=== PATIENT | male | born 1950 | race Caucasian/White ===

== ENCOUNTER 2017-06-14 21:39 | Inpatient (IN) | payer OTHER, MEDICARE ==
[2017-06-14] MEDS ORDERED: RX INFO: IV CONTRAST WAS GIVEN 1 EACH MISC MISCELLANE PRN (22:01)
[2017-06-14] MEDS ORDERED: SODIUM CHLORIDE 0.9% 1,000 ML IV STA (22:01)
[2017-06-14] MEDS ORDERED: MORPHINE SULFATE 4MG/4ML SYRG IVP STA ×2 (22:01→23:02)
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
[2017-06-14 22:28] LABS: Amorphous Sediment,Urine Few /hpf; Appearance,Urine Cloudy (Clear); Bilirubin,Urine Negative (Negative); Blood,Urine Negative (Negative); Color,Urine Yellow; Glucose,Urine (UA) Negative (Negative); Ketones,Urine 2+ (Negative); Leukocyte Esterase,Urine Negative (Negative); Mucus,Urine Many /hpf; Nitrite,Urine Negative (Negative); PH, Urine 6.5 (5.0-8.0); Protein,Urine 1+ (Negative); RBC,Urine 1 /hpf (0-5); Urobilinogen,Urine <2.0 mg/dL (<2.0); WBC,Urine 4 /hpf (0-5)
[2017-06-14 22:33] LABS: Basophils % (A) 0 %; Eosinophils % (A) 2 %; HCT 41.4 % (39.0-53.0); HGB 13.9 gm/dL (13.0-17.5); Lymphocytes # (A) 0.9 k/uL (1.0-4.8); Lymphocytes % (A) 6 %; MCH 28.9 pg (25.0-35.0); MCHC 33.5 g/dL (31.0-37.0); MCV 86.1 fL (80.0-100.0); Mean Platelet Volume 7.4; Monocytes # (A) 0.6 k/uL (0-1.0); Monocytes % (A) 4 %; Neutrophils # (A) 12.6 k/uL (1.3-7.7); Neutrophils % (A) 87 %; Platelet Count 262 k/uL (150-450); RBC 4.81 m/uL (4.30-5.90); RDW 12.9 % (11.5-15.5); WBC 14.4 k/uL (3.8-10.6)
[2017-06-14 22:34] LABS: Eosinophils # (A) 0.3 k/uL (0-0.7)
[2017-06-14 22:48] LABS: Amylase 86 U/L (30-110); Anion Gap 12 mmol/L; Calcium 9.3 mg/dL (8.4-10.2); Carbon Dioxide 20 mmol/L (22-30); Chloride 105 mmol/L (98-107); Glucose 197 mg/dL (74-99); Lipase 95 U/L (23-300); Sodium 137 mmol/L (137-145); Total Bilirubin 1.1 mg/dL (0.2-1.3)
[2017-06-14 22:53] LABS: ALT 25 U/L (21-72); AST 32 U/L (17-59); Albumin 3.7 g/dL (3.5-5.0); Alkaline Phosphatase 57 U/L (38-126); Blood Urea Nitrogen 19 mg/dL (9-20); Total Protein 6.5 g/dL (6.3-8.2)
[2017-06-14] MEDS ORDERED: ONDANSETRON 4 MG/2 ML VIAL IVP STA (23:02)
[2017-06-14] MEDS ORDERED: MORPHINE SULFATE 4MG/4ML SYRG ONE (23:04)
--- NOTE | 2017-06-14 23:37 | CT ---
EXAMINATION TYPE: CT abdomen pelvis w con DATE OF EXAM: 06/14/2017 COMPARISON: NONE HISTORY: RIGHT SIDED ABDOMINAL PAIN CT DLP: 2111.70 mGycm Automated exposure control for dose reduction was used. TECHNIQUE: Helical acquisition of images was performed from the lung bases through the pelvis. CONTRAST: Performed without Oral Contrast and with IV Contrast, patient injected with 100 mL of Isovue 300. FINDINGS: There is some mild linear density at the posterior lung bases. Heart size is normal. There is no dimitrios cardial effusion. There is no pleural effusion. Liver spleen pancreas gallbladder appear normal. Bile ducts are not dilated. There is a small hiatal hernia. There is no adrenal mass. Kidneys show satisfactory contrast opacification. There is no hydronephrosi s. There is a 3.8 cm cortical cyst on the lower pole left kidney. There is no retroperitoneal adenopa thy. There is fat stranding in the right mid abdomen with thickened appendix and probable appendicolith. A ppendix measures 16 mm. There is no evidence of an abscess. I see no intestinal wall thickening. There are no dilated loops. There are multiple diverticula in th e sigmoid colon. There is no sign of diverticulitis. Small bowel appears fairly normal. There are spo ndylotic changes in the lumbar spine with disc space narrowing at multiple levels. There is a right-s ided spondylolysis of L5. There is a mild first-degree L5-S1 spondylolisthesis. IMPRESSION: THICKENED APPENDIX WITH APPENDICOLITH AND FAT STRANDING CONSISTENT WITH ACUTE APPENDICITIS. NO ABSCES S. SIGMOID DIVERTICULOSIS. FIRST-DEGREE L5-S1 SPONDYLOLISTHESIS WITH L5 UNILATERAL SPONDYLOLYSIS. SMALL HIATAL HERNIA. THERE IS SOME THINNING OF THE ANTERIOR ABDOMINAL WALL WITH ANTERIOR BULGING OF THE OMENTAL FAT AND LO OPS OF SMALL BOWEL. LEFT RENAL CORTICAL CYST.
[2017-06-14] MEDS ORDERED: ACETAMINOPHEN TAB 325 MG TAB PO PRN (23:49)
[2017-06-14] MEDS ORDERED: HYDROcodone/APAP 5-325MG 1 EACH TAB PO PRN (23:49)
[2017-06-14] MEDS ORDERED: NALOXONE 0.4 MG/ML 1 ML VIAL IV PRN (23:49)
[2017-06-15] MEDS ORDERED: fentaNYL (PF) 50 MCG/ML 2 ML AMP IVP STA (00:13)
[2017-06-15] MEDS: MORPHINE SULFATE 4MG/4ML SYRG IV PRN ×2 (01:42→06:05)
[2017-06-15] MEDS: SODIUM CHLORIDE 0.9% 1,000 ML IV SCH ×3 (01:44→21:25)
[2017-06-15 06:59] LABS: Basophils % (A) 0 %; Eosinophils % (A) 0 %; HCT 41.4 % (39.0-53.0); HGB 13.7 gm/dL (13.0-17.5); Lymphocytes # (A) 0.3 k/uL (1.0-4.8); Lymphocytes % (A) 4 %; MCHC 33.1 g/dL (31.0-37.0); MCV 87.7 fL (80.0-100.0); Mean Platelet Volume 7.7; Monocytes # (A) 0.6 k/uL (0-1.0); Monocytes % (A) 6 %; Neutrophils # (A) 8.3 k/uL (1.3-7.7); Neutrophils % (A) 89 %; Platelet Count 236 k/uL (150-450); RBC 4.72 m/uL (4.30-5.90); RDW 13.1 % (11.5-15.5); WBC 9.3 k/uL (3.8-10.6)
[2017-06-15 07:09] LABS: ALT 25 U/L (21-72); AST 15 U/L (17-59); Albumin 3.3 g/dL (3.5-5.0); Alkaline Phosphatase 63 U/L (38-126); Anion Gap 13 mmol/L; Blood Urea Nitrogen 16 mg/dL (9-20); Calcium 8.7 mg/dL (8.4-10.2); Carbon Dioxide 21 mmol/L (22-30); Chloride 107 mmol/L (98-107); Glucose 131 mg/dL (74-99); Potassium 4.2 mmol/L (3.5-5.1); Sodium 141 mmol/L (137-145); Total Protein 5.8 g/dL (6.3-8.2)
[2017-06-15] MEDS ORDERED: ceFAZolin IN SWFI 2 GM/20 ML SYRINGE IVP ONE (08:20)
[2017-06-15] MEDS ORDERED: HEPARIN SODIUM,PORCINE 5,000 UNIT/ML 1 ML VIAL SQ ONE (08:20)
[2017-06-15] MEDS ORDERED: MORPHINE SULF 5MG/10ML VL IV PRN (10:11)
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
[2017-06-15] MEDS ORDERED: MORPHINE SULFATE 4MG/4ML SYRG IV PRN (14:15)
[2017-06-15] MEDS ORDERED: IV FLUID CONTINUATION 1,000 ML IV ONE ×2 (17:46)
[2017-06-15] MEDS ORDERED: LACTATED RINGERS 1,000 ML IV ONE ×3 (18:22→20:45)
[2017-06-15] MEDS ORDERED: ceFAZolin 1,000 MG VIAL ONE (18:23)
[2017-06-15] MEDS ORDERED: HYDROmorphone (PF) 1 MG/ML ONE (18:23)
[2017-06-15] MEDS ORDERED: SODIUM CHLORIDE 0.9% 50 ML with ceFAZolin 2,000 MG IV ONE ×2 (18:23)
[2017-06-15] MEDS ORDERED: SUCCINYLCHOLINE CHLORIDE 100 MG/5 ML SYR IV ONE (18:23)
[2017-06-15] MEDS ORDERED: GLYCOPYRROLATE 0.2 MG/ML 2 ML VIAL ONE (18:23)
[2017-06-15] MEDS ORDERED: MIDAZOLAM 2 MG/2 ML VIAL ONE (18:23)
[2017-06-15] MEDS ORDERED: ONDANSETRON 4 MG/2 ML VIAL ONE (18:23)
[2017-06-15] MEDS ORDERED: LIDOCAINE 1% INJ 10MG/ML (20 ML MDV) ONE (18:23)
[2017-06-15] MEDS ORDERED: ROCURONIUM BROMIDE 10 MG/ML 10 ML VIAL IV ONE (18:23)
[2017-06-15] MEDS ORDERED: fentaNYL (PF) 50 MCG/ML 2 ML AMP ONE (18:23)
[2017-06-15] MEDS ORDERED: NEOSTIGMINE 1 MG/ML 10 ML VIAL ONE (18:23)
[2017-06-15] MEDS ORDERED: BUPIVACAINE (PF) 0.25% 30 ML VIAL SQ ONE (18:48)
[2017-06-15] MEDS: PANTOPRAZOLE 40 MG/10 ML VIAL IVP SCH (19:28)
--- NOTE | 2017-06-15 20:44 | P.PCN ---
Date of Procedure: 06/15/17 Preoperative Diagnosis: Acute appendicitis Obesity BMI 33.2 Postoperative Diagnosis: Ruptured perforated appendicitis with peritonitis, generalized Periappendiceal abscess Fever Leukocytosis Systemic inflammatory response syndrome Procedure(s) Performed: Laparoscopic appendectomy Drainage of periappendiceal abscess Placement of round #19 drain right lower quadrant Peritoneal lavage, 2 L Anesthesia: GETA, local Surgeon: Jaclyn Landin Estimated Blood Loss (ml): 10 Pathology: other Condition: stable Disposition: floor Operative Findings: 1. Perforated appendicitis along the base 2. General peritonitis with intra-abdominal abscess drained over 50 mL 3. Gross contamination with appendicolith of stool 4. Additional ports along the right lower quadrant, left lower quadrant and left lateral abdominal wall
[2017-06-15] MEDS ORDERED: ONDANSETRON 4 MG/2 ML VIAL IVP PRN (20:45)
[2017-06-15] MEDS ORDERED: METOCLOPRAMIDE 5 MG/ML 2 ML VIAL IVP PRN (20:45)
[2017-06-15] MEDS: KETOROLAC 30 MG/ML 1 ML VIAL IVP SCH (20:56)
[2017-06-15] MEDS: PIPERACILLIN-TAZOBACTAM 3.375 GM in DEXTROSE/WATER 1 50ML.BAG IVPB SCH (21:35)
[2017-06-16] MEDS: SODIUM CHLORIDE 0.9% 1,000 ML IV SCH ×2 (00:18→16:36)
[2017-06-16] MEDS: KETOROLAC 30 MG/ML 1 ML VIAL IVP SCH ×4 (02:46→21:05)
[2017-06-16 07:52] LABS: Basophils % (A) 0 %; Eosinophils % (A) 0 %; HCT 35.3 % (39.0-53.0); HGB 11.9 gm/dL (13.0-17.5); Lymphocytes # (A) 0.7 k/uL (1.0-4.8); Lymphocytes % (A) 7 %; MCH 29.6 pg (25.0-35.0); MCHC 33.9 g/dL (31.0-37.0); MCV 87.5 fL (80.0-100.0); Mean Platelet Volume 7.6; Monocytes # (A) 0.5 k/uL (0-1.0); Monocytes % (A) 5 %; Neutrophils # (A) 7.9 k/uL (1.3-7.7); Neutrophils % (A) 85 %; Platelet Count 209 k/uL (150-450); RBC 4.03 m/uL (4.30-5.90); RDW 12.9 % (11.5-15.5); WBC 9.2 k/uL (3.8-10.6)
[2017-06-16 08:09] LABS: Calcium 8.2 mg/dL (8.4-10.2); Potassium 4.1 mmol/L (3.5-5.1)
[2017-06-16] MEDS: PIPERACILLIN-TAZOBACTAM 3.375 GM in DEXTROSE/WATER 1 50ML.BAG IVPB SCH ×2 (08:29→16:35)
[2017-06-16] MEDS: ENOXAPARIN 40 MG/0.4 ML SYRINGE SQ SCH (08:29)
[2017-06-16] MEDS: PANTOPRAZOLE 40 MG/10 ML VIAL IVP SCH (08:30)
[2017-06-16] MEDS: LEVOTHYROXINE 125 MCG TAB PO SCH (11:08)
[2017-06-16] MEDS ORDERED: MORPHINE ORAL SOLN 10 MG/5 ML CUP PO PRN (11:49)
--- NOTE | 2017-06-16 13:08 | P.PN ---
<Darline Ordonez M - Last Filed: 06/16/17 13:02> Subjective Progress Note Date: 06/16/17 66-year-old male seen this morning at bedside sitting up in a chair. States pain medication effective for pain control. States is not passing gas. Denies nausea vomiting. White count down to 9.2 this morning temp 97.5. States urinating no difficulty. Surgical dressing.dry FRANKLIN drain in right lower quadrant serous drainage noted Patient's postop june laparoscopic appendectomy for a ruptured perforated appendicitis with peritonitis Objective - Vital Signs Vital signs: Vital Signs Temp 97.8 F 06/16/17 07:00 Pulse 86 06/16/17 00:03 Resp 16 06/16/17 00:03 BP 122/78 06/16/17 07:00 Pulse Ox 98 06/16/17 07:00 Intake & Output 06/15/17 06/16/17 06/16/17 18:59 06:59 18:59 Intake Total 1950 1650 237 Output Total 470 Balance 1950 1180 237 Intake: IV 1150 750 Intake, IV Titration 800 900 Amount Lactated Ringers 1,000 ml 800 @ 125 mls/hr IV .Q8H ONE Rx#:[id number] Lactated Ringers 1,000 ml 100 As IV .STK-MED ONE Rx#: [id number] Sodium Chloride 0.9% 1, 800 000 ml @ 100 mls/hr IV . Q10H [facility] Rx#:[id number] Oral 0 0 237 Output: Drainage 120 Lower Abdomen 120 Urine 300 Estimated Blood Loss 50 Other: # Voids 2 0 - Exam Physical exam Pleasant 66-year-old male sitting up in a chair reports no nausea vomiting denies dizziness lightheadedness Lungs adequate air movement bilaterally on room air no cough Heart S1-S2 audible regular Abdomen surgical dressing site dry FRANKLIN drain right lower quadrant serous drainage few hypoactive bowel tones states is not passing gas urinating no difficulty reports no nausea vomiting Extremities no edema noted to the bilateral lower extremity - Labs CBC & Chem 7: 06/16/17 06:10 06/16/17 06:10 Labs: Abnormal Lab Results - Last 24 Hours (Table) 06/16/17 06/16/17 Range/Units 06:10 06:10 RBC 4.03 L (4.30-5.90) m/uL Hgb 11.9 L (13.0-17.5) gm/dL Hct 35.3 L (39.0-53.0) % Neutrophils # 7.9 H (1.3-7.7) k/uL Lymphocytes # 0.7 L (1.0-4.8) k/uL Glucose 101 H (74-99) mg/dL Calcium 8.2 L (8.4-10.2) mg/dL Microbiology - Last 24 Hours (Table) 06/15/17 20:25 Gram Stain - Preliminary Aspirate Body Fluid Culture - Preliminary 06/15/17 20:25 Anaerobic Culture - Preliminary Appendix 06/14/17 22:08 Urine Culture - Preliminary Urine,Voided Assessment and Plan Assessment: Impression Present on admission diffuse abdominal pain right side radiating across sharp constant suspect due to acute appendicitis Present on admission leukocytosis suspect due to acute appendicitis CAT scan abdomen and pelvis did reveal acute appendicitis Hypothyroid on supplements Current every day smoker Postop June laparoscopic appendectomy drainage periappendiceal abscess for ruptured perforated appendicitis with peritonitis Present on admission meet SIRS criteria leukocytosis febrile suspect due to ruptured perforated appendicitis with peritonitis generalized Plan Continue postop surgical care Continue IV Zosyn as ordered Follow-up on the anaerobic wound culture and urine culture Follow-up on labs Clear liquid diet advanced as tolerated Pain control DVT and GI prophylaxis IV fluid for hydration Further recommendations pending The above impression and plan of care have been discussed and directed by signing physician. Darline Ordonez nurse practitioner acting as scribe for signing physician. <Jaclyn Landin N - Last Filed: 06/16/17 18:56> Objective - Vital Signs Vital signs: Vital Signs Temp 98.6 F 06/16/17 16:34 Pulse 81 06/16/17 14:38 Resp 16 06/16/17 14:38 BP 119/72 06/16/17 14:38 Pulse Ox 94 L 06/16/17 14:38 Intake & Output 06/15/17 06/16/17 06/16/17 18:59 06:59 18:59 Intake Total 1950 1650 557 Output Total 470 100 Balance 1950 1180 457 Intake: IV 1150 750 Intake, IV Titration 800 900 Amount Lactated Ringers 1,000 ml 800 @ 125 mls/hr IV .Q8H [facility] Rx#:[id number] Lactated Ringers 1,000 ml 100 As IV .STK-MED ONE Rx#: [id number] Sodium Chloride 0.9% 1, 800 000 ml @ 100 mls/hr IV . Q10H [facility] Rx#:[id number] Oral 0 0 557 Output: Drainage 120 100 Lower Abdomen 120 100 Urine 300 Estimated Blood Loss 50 Other: # Voids 2 0 2 - Labs CBC & Chem 7: 06/16/17 06:10 06/16/17 06:10 Labs: Abnormal Lab Results - Last 24 Hours (Table) 06/16/17 06/16/17 Range/Units 06:10 06:10 RBC 4.03 L (4.30-5.90) m/uL Hgb 11.9 L (13.0-17.5) gm/dL Hct 35.3 L (39.0-53.0) % Neutrophils # 7.9 H (1.3-7.7) k/uL Lymphocytes # 0.7 L (1.0-4.8) k/uL Glucose 101 H (74-99) mg/dL Calcium 8.2 L (8.4-10.2) mg/dL Microbiology - Last 24 Hours (Table) 06/14/17 22:08 Urine Culture - Final Urine,Voided 06/15/17 20:25 Gram Stain - Preliminary Aspirate Body Fluid Culture - Preliminary 06/15/17 20:25 Anaerobic Culture - Preliminary Appendix
[2017-06-17] MEDS: PIPERACILLIN-TAZOBACTAM 3.375 GM in DEXTROSE/WATER 1 50ML.BAG IVPB SCH ×2 (00:42→12:26)
[2017-06-17] MEDS: KETOROLAC 30 MG/ML 1 ML VIAL IVP SCH ×2 (04:07→12:40)
[2017-06-17] MEDS: SODIUM CHLORIDE 0.9% 1,000 ML IV SCH ×2 (04:08→12:27)
[2017-06-17] MEDS: LEVOTHYROXINE 125 MCG TAB PO SCH (05:56)
[2017-06-17 07:28] LABS: Basophils % (A) 0 %; Eosinophils # (A) 0.5 k/uL (0-0.7); Eosinophils % (A) 5 %; HCT 34.2 % (39.0-53.0); HGB 11.5 gm/dL (13.0-17.5); Lymphocytes # (A) 0.6 k/uL (1.0-4.8); Lymphocytes % (A) 6 %; MCH 29.5 pg (25.0-35.0); MCHC 33.7 g/dL (31.0-37.0); MCV 87.8 fL (80.0-100.0); Mean Platelet Volume 7.5; Monocytes # (A) 0.5 k/uL (0-1.0); Monocytes % (A) 6 %; Neutrophils # (A) 7.9 k/uL (1.3-7.7); Neutrophils % (A) 82 %; Platelet Count 225 k/uL (150-450); RDW 12.5 % (11.5-15.5); WBC 9.7 k/uL (3.8-10.6)
[2017-06-17] MEDS ORDERED: PANTOPRAZOLE 40 MG TABLET PO SCH (07:30)
--- NOTE | 2017-06-17 12:20 | P.PN ---
Subjective Progress Note Date: 06/17/17 Patient is postop lap appendectomy with drainage of intra-abdominal abscess from ruptured appendix. He is passing flatus. He is having bowel movements. He tolerated diet. No reports of nausea or vomiting. No fevers or chills. His pain is well-controlled Objective - Vital Signs Vital signs: Vital Signs Temp 98.0 F 06/17/17 02:31 Pulse 83 06/17/17 02:31 Resp 16 06/17/17 02:31 BP 115/59 06/17/17 02:31 Pulse Ox 97 06/17/17 02:31 Intake & Output 06/16/17 06/17/17 06/17/17 18:59 06:59 18:59 Intake Total 557 1380 60 Output Total 100 320 Balance 457 1060 60 Intake: Intake, IV Titration 550 Amount Piperacillin-Tazobactam 3 50 .375 gm In Dextrose/Water 1 50ml.bag @ 12.5 mls/hr IVPB Q8HR JULIA Rx#: [id number] Sodium Chloride 0.9% 1, 500 000 ml @ 100 mls/hr IV . Q10H JULIA Rx#:[id number] Oral 557 830 60 Output: Drainage 100 45 Lower Abdomen 100 45 Urine 275 Other: # Voids 2 2 - Exam GENERAL: Well developed and in no acute distress. Pleasant. HEENT: No sclera icterus. Extraocular movements grossly intact. Moist buccal mucosa. Head is atraumatic, normocephalic. Hears conversational speech. No nasal drainage. CHEST: Non-labored respirations and equal bilateral excursions. CARDIOVASCULAR: Regular rate and rhythm. Palpable 2+ radial pulses. ABDOMEN: Soft, nontender. Nondistended. FRANKLIN draining serosanguineous MUSCULOSKELETAL: No clubbing, cyanosis or edema. NEUROLOGIC: No focal or lateralizing signs. PSYCH: Appropriate affect. Alert and oriented to person, place and time. SKIN: Good skin turgor. Well perfused. - Labs CBC & Chem 7: 06/17/17 06:45 06/16/17 06:10 Labs: Abnormal Lab Results - Last 24 Hours (Table) 06/17/17 Range/Units 06:45 RBC 3.90 L (4.30-5.90) m/uL Hgb 11.5 L (13.0-17.5) gm/dL Hct 34.2 L (39.0-53.0) % Neutrophils # 7.9 H (1.3-7.7) k/uL Lymphocytes # 0.6 L (1.0-4.8) k/uL Microbiology - Last 24 Hours (Table) 06/15/17 20:25 Gram Stain - Preliminary Aspirate Body Fluid Culture - Preliminary Gram Neg Bacilli Alpha Hemolytic Streptococcus 06/14/17 22:08 Urine Culture - Final Urine,Voided Assessment and Plan (1) Acute appendicitis Current Visit: Yes Status: Acute Code(s): K35.80 - UNSPECIFIED ACUTE APPENDICITIS SNOMED Code(s): 08666519 (2) Fever Current Visit: Yes Status: Acute Code(s): R50.9 - FEVER, UNSPECIFIED SNOMED Code(s): 503498935 (3) Intra-abdominal abscess Current Visit: Yes Status: Acute Code(s): K65.1 - PERITONEAL ABSCESS SNOMED Code(s): 07065155 (4) Leukocytosis Current Visit: Yes Status: Acute Code(s): D72.829 - ELEVATED WHITE BLOOD CELL COUNT, UNSPECIFIED SNOMED Code(s): 288754167 (5) Peritonitis (acute) generalized Current Visit: Yes Status: Acute Code(s): K65.0 - GENERALIZED (ACUTE) PERITONITIS SNOMED Code(s): 94021789 (6) SIRS (systemic inflammatory response syndrome) Current Visit: Yes Status: Acute Code(s): R65.10 - SIRS OF NON-INFECTIOUS ORIGIN W/O ACUTE ORGAN DYSFUNCTION SNOMED Code(s): 029781320 Plan: 1. He will continue with antibiotics for history of perforated appendicitis. 2. FRANKLIN drain and instructions reviewed with patient and family. 3. Discharge home with soft diet. 4. Follow-up in office in 3-5 days
[2017-06-17] MEDS: ENOXAPARIN 40 MG/0.4 ML SYRINGE SQ SCH (12:25)
[2017-06-17 14:16] VITALS: PULSE 80
[2017-06-17 14:55] VITALS: BP 111/66; RESP 20; TEMP 98
--- NOTE | 2017-06-19 11:34 | P.OP ---
Date of Procedure: 06/15/17 Description of Procedure: SURGEON: ELROY LANDIN MD COLLEGE COUNSELOR: NONE. PREOPERATIVE DIAGNOSES: 1. Acute appendicitis 2. Obesity 3. BMI 33.2 POSTOPERATIVE DIAGNOSES: 1. Acute appendicitis 2. Obesity 3. BMI 33.2 4. Ruptured perforated appendicitis with peritonitis, generalized 5. Periappendiceal abscess 6. Fever 7. Leukocytosis 8. Systemic inflammatory response syndrome OPERATION: 1. Laparoscopic appendectomy 2. Drainage of periappendiceal abscess 3. Placement of round #19 drain right lower quadrant 4. Peritoneal lavage, 2 L Anesthesia: GETA, local Surgeon: Elroy Landin Estimated Blood Loss (ml): 10 Pathology: other Condition: stable Disposition: floor Operative Findings: 1. Perforated appendicitis along the base 2. General peritonitis with intra-abdominal abscess drained over 50 mL 3. Gross contamination with appendicolith of stool 4. Additional ports along the right lower quadrant, left lower quadrant and left lateral abdominal wall INDICATIONS: The patient is an 66-year-old male who presents with 3+ day history of right lower quadrant abdominal pain. He presented with leukocytosis. CT of the abdomen and pelvis was obtained. Benefits and risks, including possibility of open technique were described at length. Informed consent was obtained. DESCRIPTION OR PROCEDURE: Patient was brought to the operating room, laid in supine position. After general induction, the abdomen was prepped and draped in standard sterile fashion. Prior to incision, a timeout protocol was confirmed with surgical team regarding patient's name including procedure to be performed. Preoperative medications of antibiotics were given intraoperatively. Additionally, bilateral SCDs were placed. A transverse 5-mm left upper quadrant incision was made after localizing the skin with anesthetic. A 0 degree 5 mm laparoscopic trocar entry was performed and entered into the peritoneal cavity. The abdomen was insufflated to 15 mmHg of pressure, which he tolerated well. Diagnostic laparoscopy demonstrated no injury to bowel, viscera or mesentery. A systematic view within the abdominal cavity was started with the small bowel which was unremarkable. Along the right lower quadrant, a phlegmon was forming suspicious for perforated appendicitis. Purulent ascites was found about the liver consistent with peritonitis. A 12 mm port was placed along the left lower quadrant for firing of a stapler. Additional 5-mm ports were placed along the right lower quadrant and above pubis. Another 12 mm port was placed infraumbilical. To address the purulent peritoneal fluid, the abscess was drained of over 50 mL. Aerobic and anaerobic cultures were obtained. Marked inflammation of the distal ileum and right lower quadrant was identified. Carefully, extensive lysis of adhesions was performed for over 30 minutes to identify the appendix. A hole was found at the base of the appendix with appendicolith consistent with perforation. A 45 mm Endo JOSEPH echelon stapler was fired along the base of the appendix using a lemus vascular load after mobilizing the mesoappendix using a Harmonic scalpel. The staple line was checked for hemostasis. The specimen was removed from the abdominal cavity via the 12 mm port using the Endo Catch bag. The abdomen was copiously irrigated with 2 L of warm normal saline until clear for peritoneal lavage. A round # 19 drain was positioned along the right lower quadrant and pelvis and exited via the right lower quadrant trocar. A drain stitch 2-0 nylon was placed. The fascia was reapproximated using Raf-Joe and 0 Vicryl along the umbilicus. All instruments and pneumoperitoneum were evacuated from the abdominal cavity. Local was infiltrated in all wounds for postop analgesia. The skin was cleansed with normal saline and hydroperoxide. Dermabond was applied to the skin after reapproximating the incisions with 4-0 Monocryl as described. An Optifoam antibacterial dressing was placed along the umbilicus and right lower quadrant drain. At the end of the procedure, needle, sponge, and instrument count was verified correct by assembler surgical garment. The patient had tolerated the procedure well, was taken to the postanesthesia care unit in stable condition. Intraoperative abdominal films were described and discussed with his family who was overall pleased with the level of care.
--- NOTE | 2017-06-19 11:34 | P.DS ---
Providers Date of admission: 06/15/17 20:45 Expected date of discharge: 06/17/17 Attending physician: Jaclyn Landin Primary care physician: [facility] Clinic - Discharge Diagnosis(es) (1) Acute appendicitis Current Visit: Yes Status: Acute (2) Fever Current Visit: Yes Status: Acute (3) Intra-abdominal abscess Current Visit: Yes Status: Acute (4) Leukocytosis Current Visit: Yes Status: Acute (5) Peritonitis (acute) generalized Current Visit: Yes Status: Acute (6) SIRS (systemic inflammatory response syndrome) Current Visit: Yes Status: Acute Patient Condition at Discharge: Undetermined Plan - Discharge Summary Discharge Rx Participant: Yes New Discharge Prescriptions: New Amoxic-Pot Clav 875-125Mg [Augmentin Xr 875-125] 1 each PO Q12HR #20 tablet HYDROcodone/APAP 5-325MG [[place] 5-325] 1 tab PO Q6HR PRN #20 tab PRN Reason: Pain No Action Multivitamins, Thera [Multivitamin (formulary)] 1 tab PO DAILY Levothyroxine Sodium [Synthroid] 125 mcg PO DAILY [id number] [id number] [Excedrin] 1 tab PO Q4HR PRN PRN Reason: Pain Discharge Medication List [id number]-Tyoa [id number] [Excedrin] 1 tab PO Q4HR PRN 06/14/17 [History] Levothyroxine Sodium [Synthroid] 125 mcg PO DAILY 06/14/17 [History] Multivitamins, Thera [Multivitamin (formulary)] 1 tab PO DAILY 06/14/17 [History ] Amoxic-Pot Clav 875-125Mg [Augmentin Xr 875-125] 1 each PO Q12HR #20 tablet 08/28 [Rx] HYDROcodone/APAP 5-325MG [[place] 5-325] 1 tab PO Q6HR PRN #20 tab 06/16/17 [Rx] Follow up Appointment(s)/Referral(s): Jaclyn Landin MD [STAFF PHYSICIAN] - 06/20/[address] [facility],Clinic [Primary Care Provider] - 1-2 days Patient Instructions/Handouts: Appendicitis (GEN), Manjeet-Drummond Drain Care ( GEN), Laparoscopic Appendectomy (DC) Activity/Diet/Wound Care/Special Instructions: No bathtub soaks. May sponge bath. Drain FRANKLIN with measurements. Discharge Disposition: HOME SELF-CARE
--- NOTE | 2017-06-19 11:36 | P.DS ---
Providers Date of admission: 06/15/17 20:45 Expected date of discharge: 06/17/17 Attending physician: Jaclyn Landin Primary care physician: [facility] Clinic - Discharge Diagnosis(es) (1) Acute appendicitis Status: Acute (2) Fever Status: Acute (3) Intra-abdominal abscess Status: Acute (4) Leukocytosis Status: Acute (5) Peritonitis (acute) generalized Status: Acute (6) SIRS (systemic inflammatory response syndrome) Status: Acute Hospital Course: POSTOPERATIVE DIAGNOSES: 1. Acute appendicitis 2. Obesity 3. BMI 33.2 4. Ruptured perforated appendicitis with peritonitis, generalized 5. Periappendiceal abscess 6. Fever 7. Leukocytosis 8. Systemic inflammatory response syndrome COURSE: The patient is a 66-year-old gentleman admitted secondary to perforated appendicitis. Laparoscopic appendectomy with abdominal lavage and placement of drain was performed. Post procedure, leukocytosis resolved. Bowel function resumed. He was stable for discharge. Pertinent Studies: CT of the abdomen and pelvis demonstrated appendicitis Procedures: OPERATION: 1. Laparoscopic appendectomy 2. Drainage of periappendiceal abscess 3. Placement of round #19 drain right lower quadrant 4. Peritoneal lavage, 2 L Anesthesia: GETA, local Surgeon: Jaclyn Landin Estimated Blood Loss (ml): 10 Pathology: other Condition: stable Disposition: floor Operative Findings: 1. Perforated appendicitis along the base 2. General peritonitis with intra-abdominal abscess drained over 50 mL 3. Gross contamination with appendicolith of stool 4. Additional ports along the right lower quadrant, left lower quadrant and left lateral abdominal wall Patient Condition at Discharge: Stable Plan - Discharge Summary Discharge Rx Participant: Yes New Discharge Prescriptions: New Amoxic-Pot Clav 875-125Mg [Augmentin Xr 875-125] 1 each PO Q12HR #20 tablet HYDROcodone/APAP 5-325MG [[place] 5-325] 1 tab PO Q6HR PRN #20 tab PRN Reason: Pain Continue Multivitamins, Thera [Multivitamin (formulary)] 1 tab PO DAILY Levothyroxine Sodium [Synthroid] 125 mcg PO DAILY Ckpxsll-Pbax-Rtpo [id number] [Excedrin] 1 tab PO Q4HR PRN PRN Reason: Pain Discharge Medication List Vndsujq-Raml-Owzz [id number] [Excedrin] 1 tab PO Q4HR PRN 06/14/17 [History] Levothyroxine Sodium [Synthroid] 125 mcg PO DAILY 06/14/17 [History] Multivitamins, Thera [Multivitamin (formulary)] 1 tab PO DAILY 06/14/17 [History ] Amoxic-Pot Clav 875-125Mg [Augmentin Xr 875-125] 1 each PO Q12HR #20 tablet 08/28 [Rx] HYDROcodone/APAP 5-325MG [[place] 5-325] 1 tab PO Q6HR PRN #20 tab 06/16/17 [Rx] Follow up Appointment(s)/Referral(s): Jaclyn Landin MD [STAFF PHYSICIAN] - 06/20/17 (CALL ON MONDAY TO SCHEDULE APPOINTMENT, OFFICE CLOSED AT TIME OF DISCHARGE.) [facility],Clinic [Primary Care Provider] - 1-2 days (CALL TO SCHEDULE APPOINTMENT , OFFICE CLOSED AT TIME OF DISCHARGE.) Patient Instructions/Handouts: Appendicitis (GEN), Soft Diet (DC), Manjeet- Drummond Drain Care (GEN), Laparoscopic Appendectomy (DC) Activity/Diet/Wound Care/Special Instructions: No bathtub soaks. May sponge bath. Drain FRANKLIN with measurements. Discharge Disposition: HOME SELF-CARE
== END 2017-06-17 16:00 | disposition home or self-care (01) | DRG 337 ==
LOC: EC 21:39 → INTOOBSV 06-15 00:46 → 3SUR 06-15 00:46 → OBSVTOIN 06-15 20:45
PROVIDERS: ADMIT Surgery Plastic and Reconstructive Surgery; ATTEND Surgery Plastic and Reconstructive Surgery
PROC: 0DTJ4ZZ Resection of Appendix, Percutaneous Endoscopic Approach (ICD-10-PCS; 2017-06-15)
PROC: 3E1M38Z Irrigation of Peritoneal Cavity using Irrigating Substance, Percutaneous Approach (ICD-10-PCS; 2017-06-15)
PROC: 0D9W40Z Drainage of Peritoneum with Drainage Device, Percutaneous Endoscopic Approach (ICD-10-PCS; 2017-06-15)
PROC: 0DNJ4ZZ Release Appendix, Percutaneous Endoscopic Approach (ICD-10-PCS; principal; 2017-06-15 07:30)
DX: K35.2 Acute appendicitis with generalized peritonitis (principal); N28.1 Cyst of kidney, acquired; E66.9 Obesity, unspecified; E03.9 Hypothyroidism, unspecified; Z68.33 Body mass index [BMI] 33.0-33.9, adult; K66.0 Peritoneal adhesions (postprocedural) (postinfection); K38.1 Appendicular concretions; K44.9 Diaphragmatic hernia without obstruction or gangrene; K57.30 Diverticulosis of large intestine without perforation or abscess without bleeding; E78.5 Hyperlipidemia, unspecified; M43.16 Spondylolisthesis, lumbar region; Z71.6 Tobacco abuse counseling; F17.200 Nicotine dependence, unspecified, uncomplicated; Z79.890 Hormone replacement therapy; Z79.899 Other long term (current) drug therapy; Z86.13 Personal history of malaria
CPT/HCPCS: 36415; 74177; 80048; 80053; 81001; 82150; 83690; 85025; 87070; 87075; 87077; 87086; 87186; 87205; 88304; 93005; 96361; 96374; 96375; 96376; 99285

== ENCOUNTER → 2017-07-12 | Outpatient (CLI) | payer OTHER ==
--- NOTE | 2017-07-12 11:28 | US ---
EXAMINATION TYPE: US abdomen limited DATE OF EXAM: 07/12/2017 COMPARISON: Correlation CT 06/14/2017 CLINICAL HISTORY: 67-year-old male K35.3 Appendiceal abscess,. Patient states that he had appendix re moved x one month ago. Check for ascites. No abdominal enlargement per patient. TECHNIQUE: Multiple sonographic images of the 4 abdominal quadrants for assessment of ascites fluid. FINDINGS: All four quadrants scanned. No free fluid seen. IMPRESSION: No abdominal ascites seen.
--- NOTE | 2017-07-12 11:33 | P.PN ---
Progress Note - Text Progress Note Date: 07/12/17 Patient seen and evaluated. Patient reports increased swelling from this morning of the right lower quadrant incision with new redness from last seen in the office yesterday. Ultrasound completed also at bedside. Findings consistent with fluid collection at subcutaneous tissue of right lower quadrant Patient advised to use warm compress. Antibiotic to be prescribed. Drainage to be done in the office.
== END | disposition home or self-care (01) ==
LOC: RADUSWWP 10:59
PROVIDERS: ATTEND Surgery Plastic and Reconstructive Surgery
DX: K35.3 Acute appendicitis with localized peritonitis (principal); R18.8 Other ascites
CPT/HCPCS: 76705

== ENCOUNTER 2017-08-30 09:25 | Day surgery (SDC) | payer OTHER ==
[2017-08-25 11:31] VITALS: BMI 30.6
[~2017-08-30 09:25] MED LIST: LACTATED RINGERS 1,000 ML IV SCH; LIDOCAINE 1% 20 ML VIAL (10MG/ML) FOR IV START INTRADERMA PRN
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
[2017-08-30 10:15] VITALS: TEMP 97.3
[2017-08-30] MEDS ORDERED: PROPOFOL 10 MG/ML 20 ML VIAL IV ONE (11:01)
--- NOTE | 2017-08-30 11:18 | P.PCN ---
Date of Procedure: 08/30/17 Description of Procedure: PREOPERATIVE DIAGNOSIS: Colonoscopy screening Personal history of colon polyps POSTOPERATIVE DIAGNOSIS: Colonoscopy screening, first Personal history of colon polyps. Multiple tubular adenomas throughout the colon. Sigmoid diverticulosis Internal hemorrhoids, grade 2. OPERATION: Colonoscopy to the ileocecal valve and appendiceal orifice. Colonoscopy with hot snare polypectomies Colonoscopy with cold forceps biopsies. SURGEON: Jaclyn Landin MD. ANESTHESIA: MAC. INDICATIONS: The patient is a 67-year-old female who presents for colonoscopy screening. Benefits and risks were described and informed consent was obtained. DESCRIPTION OF PROCEDURE: The patient had undergone Gatorade, MiraLAX and Dulcolax prep. He had been brought into the operating room and laid in the left lateral decubitus position. The prostate was smooth and without abnormality. After adequate intravenous sedation, the rectum was examined with 2% lidocaine jelly. No external hemorrhoids were encountered. The rectal tone was within normal limits. No lesions were palpated in the rectal vault. An Olympus colonoscope was advanced until the ileocecal valve and appendiceal orifice were clearly viewed. The prep was fair with visualization of the mucosal folds. The scope was removed with visualization of each mucosal fold. Scattered diverticulosis was encountered. Colonic polyps were found and cold forcep biopsy or snare polypectomy. No evidence of focal colitis was found. Retroflexion of the scope demonstrated grade 1 internal hemorrhoids without active bleeding or inflammation. The colon was desufflated. The patient had tolerated the procedure well. Withdrawal time was over 6 minutes. FINDINGS: Internal hemorrhoids, grade 1 No external hemorrhoids No arteriovenous malformations. Scattered sigmoid diverticulosis. Removal of 2 polyps: - Snare polypectomy 20 cm from the anal verge, 8 mm tubulovillous adenoma polyp , sigmoid colon. - Cold forceps biopsy at 5 cm from the anal verge, 3 mm polyp, rectum No focal colitis. RECOMMENDATIONS: Given severity of tubular adenomas, recommend repeat colonoscopy 3 years. Plan - Discharge Summary New Discharge Prescriptions: No Action Levothyroxine Sodium [Synthroid] 125 mcg PO DAILY Discharge Medication List Levothyroxine Sodium [Synthroid] 125 mcg PO DAILY 06/14/17 [History]
[2017-08-30 11:40] VITALS: BP 121/81; PULSE 61; RESP 16
== END 2017-08-30 11:54 | disposition home or self-care (01) ==
LOC: ORWHC2ENDO 09:25
PROVIDERS: ATTEND Surgery Plastic and Reconstructive Surgery
DX: Z12.11 Encounter for screening for malignant neoplasm of colon (principal); D12.5 Benign neoplasm of sigmoid colon; E07.9 Disorder of thyroid, unspecified; K57.30 Diverticulosis of large intestine without perforation or abscess without bleeding; K62.1 Rectal polyp; K64.1 Second degree hemorrhoids; Z86.010 Personal history of colon polyps; Z87.891 Personal history of nicotine dependence; Z79.899 Other long term (current) drug therapy
CPT/HCPCS: 88305; 45385; 45380; J2704

== ENCOUNTER 2019-08-01 11:45 | Emergency (ER) | payer MEDICARE, OTHER ==
[2019-08-01] MEDS ORDERED: SODIUM CHLORIDE 0.9% 1,000 ML IV STA (12:08)
[2019-08-01] MEDS ORDERED: LOPERAMIDE 2 MG CAP PO STA (12:10)
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
[2019-08-01 12:37] LABS: Basophils # (A) 0.1 k/uL (0-0.2); Basophils % (A) 1 %; Eosinophils # (A) 0.2 k/uL (0-0.7); Eosinophils % (A) 3 %; HCT 41.3 % (39.0-53.0); HGB 13.7 gm/dL (13.0-17.5); Lymphocytes # (A) 1.1 k/uL (1.0-4.8); Lymphocytes % (A) 15 %; MCH 29.8 pg (25.0-35.0); MCHC 33.2 g/dL (31.0-37.0); MCV 89.8 fL (80.0-100.0); Mean Platelet Volume 7.4; Monocytes # (A) 0.5 k/uL (0-1.0); Monocytes % (A) 7 %; Neutrophils # (A) 5.1 k/uL (1.3-7.7); Neutrophils % (A) 73 %; Platelet Count 245 k/uL (150-450); RDW 12.4 % (11.5-15.5)
[2019-08-01 13:08] LABS: ALT 20 U/L (4-49); AST 23 U/L (17-59); African American GFR (CKD) >90 (>60 ml/min/1.73 sqM); Albumin 3.7 g/dL (3.5-5.0); Alkaline Phosphatase 60 U/L (38-126); Anion Gap 5 mmol/L; Blood Urea Nitrogen 18 mg/dL (9-20); Calcium 8.7 mg/dL (8.4-10.2); Carbon Dioxide 24 mmol/L (22-30); Chloride 107 mmol/L (98-107); Glucose 106 mg/dL (74-99); Magnesium 2.4 mg/dL (1.6-2.3); Non-African American GFR(CKD) >90 (>60 ml/min/1.73 sqM); Potassium 3.9 mmol/L (3.5-5.1); Sodium 136 mmol/L (137-145); Total Bilirubin 0.3 mg/dL (0.2-1.3); Total Protein 6.3 g/dL (6.3-8.2)
[2019-08-01 14:02] LABS: Appearance,Urine Clear (Clear); Bilirubin,Urine Negative (Negative); Blood,Urine Negative (Negative); Color,Urine Light Yellow; Glucose,Urine (UA) Negative (Negative); Ketones,Urine Negative (Negative); Leukocyte Esterase,Urine Negative (Negative); Nitrite,Urine Negative (Negative); PH, Urine 5.5 (5.0-8.0); Protein,Urine Negative (Negative); Specific Gravity,Urine 1.013 (1.001-1.035); Urobilinogen,Urine <2.0 mg/dL (<2.0)
[2019-08-01 15:39] VITALS: BP 141/84; PULSE 72; RESP 18; TEMP 97.1
== END 2019-08-01 15:39 | disposition home or self-care (01) ==
LOC: EC 11:45
DX: R19.7 Diarrhea, unspecified (principal); E07.9 Disorder of thyroid, unspecified; Z79.890 Hormone replacement therapy; Z87.891 Personal history of nicotine dependence; Z98.890 Other specified postprocedural states
CPT/HCPCS: 36415; 80053; 81003; 83605; 83735; 85025; 87324; 96360; 99284

== ENCOUNTER → 2019-09-10 | Day surgery (SDC) | payer OTHER ==
[2019-09-06 15:59] VITALS: BMI 28.2
[~2019-09-10] MED LIST changes: -LIDOCAINE 1% 20 ML VIAL (10MG/ML) FOR IV START INTRADERMA PRN; +PROPOFOL 10 MG/ML 20 ML VIAL IV ONE; +SODIUM CHLORIDE 0.9% 500 ML 500 ML IV ONE
[2019-09-10 11:00] VITALS: TEMP 97
--- NOTE | 2019-09-10 12:37 | P.PCN ---
Date of Procedure: 09/10/19 Description of Procedure: BRIEF HISTORY: Patient is a 69-year-old male presenting for outpatient colonoscopy for symptoms of diarrhea. Reports that he has been having frequent loose bowel movements over the past few months. Has started using an antidiarrheal as needed with some improvement in symptoms, however diarrhea has persisted. PROCEDURE PERFORMED: Colonoscopy with polypectomy and biopsy. PREOPERATIVE DIAGNOSIS: Diarrhea, altered bowel function. ESTIMATED BLOOD LOSS: Minimal. IV sedation per Anesthesia. PROCEDURE: After informed consent was obtained, the patient, was brought into the endoscopy unit. IV sedation was administered by Anesthesia under continuous monitoring. Digital rectal examination was normal. Initially the Olympus CF-190 flexible video colonoscope was then inserted in the rectum, gradually advanced into the cecum without any difficulty. Careful examination was performed as the scope was gradually being withdrawn. Ileocecal valve and the appendiceal orifice were visualized and appeared normal. Prep was excellent. Mucosa of the cecum, ascending colon, transverse colon, descending colon, sigmoid colon, and rectum appeared normal, with biopsies taken of the right and left colon in the setting of diarrhea. The terminal ileum was also intubated and appeared normal with biopsies taken. 2 diminutive 2 mm polyps removed from ascending colon with cold forcep polypectomy. Mild sigmoid diverticulosis was seen with multiple small mouth diverticula noted. Retroflexion was performed in the rectum and no lesions were seen, low-grade internal hemorrhoids. The patient tolerated the procedure well. IMPRESSION: 2 diminutive ascending colon polyp removed with cold forceps. Normal-appearing colon from rectum to cecum with normal-appearing terminal ileum with random biopsies taken of the terminal ileum, right colon and left colon in the setting of altered bowel function/diarrhea. Mild sigmoid diverticulosis. Low-grade internal hemorrhoids. RECOMMENDATIONS: Findings of this examination were discussed with the patient. Okay to resume diet. Okay to resume medications. Await pathology from biopsies and polypectomy. Okay to continue antidiarrheal at this time.
[2019-09-10 12:54] VITALS: BP 114/76; PULSE 58; RESP 16
== END ==
LOC: ORWHC2ENDO 10:36
PROVIDERS: ATTEND Internal Medicine
DX: K52.831 Collagenous colitis (principal); K63.5 Polyp of colon; K57.30 Diverticulosis of large intestine without perforation or abscess without bleeding; K64.8 Other hemorrhoids; E07.9 Disorder of thyroid, unspecified; Z87.891 Personal history of nicotine dependence; Z79.899 Other long term (current) drug therapy; Z79.890 Hormone replacement therapy; Z90.49 Acquired absence of other specified parts of digestive tract; Z98.890 Other specified postprocedural states
CPT/HCPCS: 45380; 88305; 88313; J2704

== ENCOUNTER 2019-11-07 12:30 | Emergency (ER) | payer OTHER ==
[2019-11-07 12:53] VITALS: TEMP 98.7
[2019-11-07] MEDS ORDERED: SODIUM CHLORIDE 0.9% 500 ML 500 ML IV STA (13:22)
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
[2019-11-07 13:49] LABS: Basophils # (A) 0.1 k/uL (0-0.2); Basophils % (A) 1 %; Eosinophils # (A) 0.2 k/uL (0-0.7); Eosinophils % (A) 4 %; HCT 42.9 % (39.0-53.0); Lymphocytes # (A) 1.2 k/uL (1.0-4.8); Lymphocytes % (A) 19 %; MCHC 32.5 g/dL (31.0-37.0); MCV 89.2 fL (80.0-100.0); Mean Platelet Volume 7.3; Monocytes # (A) 0.4 k/uL (0-1.0); Monocytes % (A) 6 %; Neutrophils # (A) 4.4 k/uL (1.3-7.7); Neutrophils % (A) 68 %; Platelet Count 224 k/uL (150-450); RBC 4.82 m/uL (4.30-5.90); RDW 12.9 % (11.5-15.5); WBC 6.5 k/uL (3.8-10.6)
[2019-11-07 13:59] LABS: INR 0.9 (<1.2); Partial Thromboplastin Time 23.6 sec (22.0-30.0); Prothrombin Time 9.5 sec (9.0-12.0)
[2019-11-07 14:00] LABS: ALT 18 U/L (4-49); AST 20 U/L (17-59); African American GFR (CKD) >90 (>60 ml/min/1.73 sqM); Albumin 3.7 g/dL (3.5-5.0); Alkaline Phosphatase 56 U/L (38-126); Anion Gap 4 mmol/L; Blood Urea Nitrogen 14 mg/dL (9-20); Calcium 8.8 mg/dL (8.4-10.2); Carbon Dioxide 26 mmol/L (22-30); Chloride 107 mmol/L (98-107); Creatine Kinase 48 U/L (55-170); Glucose 78 mg/dL (74-99); Magnesium 2.3 mg/dL (1.6-2.3); Non-African American GFR(CKD) 85 (>60 ml/min/1.73 sqM); Potassium 4.1 mmol/L (3.5-5.1); Sodium 137 mmol/L (137-145); Total Bilirubin 0.3 mg/dL (0.2-1.3)
[2019-11-07 14:35] LABS: Appearance,Urine Clear (Clear); Bilirubin,Urine Negative (Negative); Blood,Urine Negative (Negative); Color,Urine Yellow; Glucose,Urine (UA) Negative (Negative); Ketones,Urine Negative (Negative); Leukocyte Esterase,Urine Negative (Negative); Nitrite,Urine Negative (Negative); PH, Urine 5.5 (5.0-8.0); Protein,Urine Negative (Negative); Urobilinogen,Urine <2.0 mg/dL (<2.0)
--- NOTE | 2019-11-07 14:57 | CT ---
EXAMINATION TYPE: CT brain wo/w con DATE OF EXAM: 11/07/2019 COMPARISON: None. HISTORY: Weakness, dizziness and confusion. CT DLP: 1489.4 mGycm Automated exposure control for dose reduction was used. CONTRAST: CT scan of the head is performed without and with IV Contrast, patient injected with 100 mL of Isovue 300. FINDINGS: No acute intracranial hemorrhage. Left parietal occipital region shows heterogeneous hyperdense 4.9 x 4.3 by 4.1 cm mass shows heterogeneous peripheral enhancement with some central nonenhancement. Ther e is adjacent vasogenic edema and local mass effect extending to the inferior left occipital region. No hydrocephalus. Background mild diffuse age-related cerebral atrophy. Mild mucosal thickening left maxillary sinus wi th small mucous retention cyst or polyp inferiorly. Nearly completely opacified bilateral ethmoid sin uses . Globes are intact bilaterally. No additional enhancing masses clearly seen. . IMPRESSION: There is 4.9 cm left parietal occipital hyperdense heterogeneous enhancing mass with loca l mass effect. No midline shift or hydrocephalus. Favor intraparenchymal location raising concern for primary neoplasm or hyperdense metastatic focus. Extra-axial location and meningioma felt less likel y but not excluded. Clinical correlation and follow-up advised.
[2019-11-07 15:43] VITALS: BP 127/72; PULSE 63; RESP 17
== END 2019-11-07 16:43 | disposition other institution (70) ==
LOC: EC 12:30
DX: G93.89 Other specified disorders of brain (principal); R79.89 Other specified abnormal findings of blood chemistry; E07.9 Disorder of thyroid, unspecified; Z79.890 Hormone replacement therapy; Z87.891 Personal history of nicotine dependence
CPT/HCPCS: 36415; 93005; 80053; 82550; 83605; 83735; 84484; 85025; 85610; 85730; 81003; 70470; 99285; Q9967